=== PATIENT | male | born 1945 | race Caucasian/White ===

== ENCOUNTER 2019-03-04 06:44 | Inpatient (IN) | payer OTHER ==
[~2019-03-04] VITALS: Ht 167.6 cm; Wt 54.0 kg
[~2019-03-04 06:44] MED LIST: AMIO200T4 ORAL; AMOX1TAB10 PO; APIX5TAB ORAL; ASPI-817 ORAL; ASPI325T29 PO; ATOR-2 ORAL; ATOR40TA68 PO; CARV3.1260 ORAL; DOCU-216 ORAL; DOXY-214 PO; FAMO20TA18 ORAL; FOLI-49 ORAL; FURO20TA3 ORAL; LACT1CAP57 PO; LEVO25TA6 ORAL; METO-335 PO; METO-448 ORAL; MIDO10TA PO; NITR0.4T32 SUBLINGUAL; POTA20TA15 ORAL; [UNRECOGNIZED DRUG - CODE] ORAL
[2019-03-04] MEDS ORDERED: ASPIRIN 81 MG TAB PO STA (07:02)
[2019-03-04] MEDS ORDERED: NITROGLYCERIN 2% 1 GM OINT PKT TD STA (07:02)
[2019-03-04] MEDS ORDERED: FUROSEMIDE 40 MG INJ IV STA (07:02)
[2019-03-04] MEDS ORDERED: NITROGLYCERIN (SL) 0.4 MG TAB SL PRN (07:30)
[2019-03-04] MEDS ORDERED: AZITHROMYCIN 500MG/NS (PMX) 250 ML IV STA (07:48)
[2019-03-04] MEDS ORDERED: CEFTRIAXONE 1 GM/50 ML (PMX) 50 ML IVPB STA (07:48)
[2019-03-04] MEDS ORDERED: ACETAMINOPHEN 325 MG TAB PO PRN ×2 (08:30→16:30)
[2019-03-04] MEDS ORDERED: ONDANSETRON 4 MG INJ IV PRN ×2 (08:30→16:30)
[2019-03-04] MEDS ORDERED: SOD CHLORIDE 0.9% 500 ML IV STA (09:51)
[2019-03-04 16:19] VITALS: Ht 167.6 cm; Wt 54.0 kg
[2019-03-04] MEDS ORDERED: ALBUMIN HUMAN 25% 100 ML IV ONE (16:30)
[2019-03-04] MEDS ORDERED: VANCOMYCIN IV PER PHARMACY XX SCH (16:30)
[2019-03-04] MEDS ORDERED: LORAZEPAM 0.5 MG TAB PO PRN (16:30)
[2019-03-04 16:36] VITALS: BP 114/63; PULSE 62; RESP 18
[2019-03-04] MEDS ORDERED: VANCOMYCIN 1 GM 250 ML IVPB SCH (17:00)
[2019-03-04 20:00] VITALS: BP 96/56; PULSE 74; RESP 19
[2019-03-04] MEDS ORDERED: ATORVASTATIN 80 MG TAB PO SCH (21:00)
[2019-03-04] MEDS: AMIODARONE 200 MG TAB PO SCH (21:00)
[2019-03-04] MEDS: APIXABAN 5 MG TABLET PO SCH (21:00)
[2019-03-04] MEDS: MIDODRINE 5 MG TAB PO SCH (21:22)
[2019-03-04] MEDS: DOCUSATE SODIUM 100 MG CAP PO SCH (21:22)
[2019-03-04] MEDS: CEFEPIME 1GM/50 ML (PMX) 50 ML IVPB SCH (21:23)
[2019-03-04 23:45] VITALS: BP 108/67; PULSE 78; RESP 18
[2019-03-05 04:06] VITALS: BP 111/77; PULSE 66; RESP 18
[2019-03-05 07:24] VITALS: BP 107/71; PULSE 64; RESP 20
[2019-03-05] MEDS: CEFEPIME 1GM/50 ML (PMX) 50 ML IVPB SCH (08:37)
[2019-03-05] MEDS: AMIODARONE 200 MG TAB PO SCH (08:40)
[2019-03-05] MEDS: APIXABAN 5 MG TABLET PO SCH ×2 (08:40→10:27)
[2019-03-05] MEDS: DOCUSATE SODIUM 100 MG CAP PO SCH (08:41)
[2019-03-05] MEDS: MIDODRINE 5 MG TAB PO SCH ×2 (08:42→13:18)
[2019-03-05] MEDS ORDERED: LEVOTHYROXINE 75 MCG TAB PO SCH (09:00)
[2019-03-05] MEDS ORDERED: LEVOTHYROXINE 25 MCG TAB PO SCH (09:00)
[2019-03-05] MEDS ORDERED: POTASSIUM CHLORIDE (SR) 20 MEQ TAB PO SCH (09:00)
[2019-03-05] MEDS ORDERED: FAMOTIDINE 20 MG TAB PO SCH (09:00)
[2019-03-05] MEDS ORDERED: FOLIC ACID 1 MG TAB PO SCH (09:00)
[2019-03-05] MEDS ORDERED: DIGOXIN 0.125 MG TAB PO SCH (09:00)
[2019-03-05] MEDS ORDERED: ASPIRIN (EC) 81 MG TAB PO SCH (09:00)
[2019-03-05] MEDS ORDERED: FUROSEMIDE 20 MG TAB PO SCH (09:00)
[2019-03-05 11:09] VITALS: BP 102/63; PULSE 65; RESP 20
== END 2019-03-05 15:35 | disposition home health service (06) | DRG 291 ==
LOC: E/R 06:44 → 6WM 08:13 → SUATTDRO 13:49
PROVIDERS: ADMIT Family Medicine; ATTEND Family Medicine
DX: I11.0 Hypertensive heart disease with heart failure (principal); J18.9 Pneumonia, unspecified organism; I45.3 Trifascicular block; I50.23 Acute on chronic systolic (congestive) heart failure; Z95.1 Presence of aortocoronary bypass graft; I25.5 Ischemic cardiomyopathy; I48.0 Paroxysmal atrial fibrillation; E03.9 Hypothyroidism, unspecified; I95.89 Other hypotension; Z79.82 Long term (current) use of aspirin
CPT/HCPCS: 36415; 36600; 71045; 80048; 80053; 80162; 80307; 82550; 82553; 82803; 83605; 83735; 84436; 84443; 84479; 84484; 85025; 87081; 93005; 93308; 96374; J0456; J0692; J0696; J1940; J3370; J7040; P9047